=== PATIENT | female | born 1955 | race Hispanic/Latino ===

== ENCOUNTER 2020-12-17 14:30 | Outpatient (CLI) | payer MEDICARE, OTHER | END 2020-12-17 14:31 | disposition home or self-care (01) | LOC: CSHULT 14:30 | PROVIDERS: ATTEND Internal Medicine Cardiovascular Disease | DX: E04.1 Nontoxic single thyroid nodule (principal); E04.2 Nontoxic multinodular goiter | CPT/HCPCS: 76536 ==